=== PATIENT | male | born 1985 | race African-American/Black ===

== ENCOUNTER 2016-10-06 22:12 | Emergency (ER) | payer SELFPAY ==
[~2016-10-06] VITALS: Ht 188 cm; Wt 104.0 kg
[2016-10-07 01:18] VITALS: BP 126/78
== END 2016-10-07 02:28 | disposition home or self-care (01) ==
LOC: ER 22:12
DX: A08.4 Viral intestinal infection, unspecified (principal); J45.909 Unspecified asthma, uncomplicated; F17.200 Nicotine dependence, unspecified, uncomplicated; F12.10 Cannabis abuse, uncomplicated
CPT/HCPCS: 99283

== ENCOUNTER 2016-11-17 22:02 | Emergency (ER) | payer SELFPAY ==
[~2016-11-17] VITALS: Ht 185.4 cm; Wt 105.0 kg
[2016-11-18 01:43] VITALS: BP 110/65
== END 2016-11-18 03:49 | disposition home or self-care (01) ==
LOC: ER 22:02
DX: R10.9 Unspecified abdominal pain (principal); J45.909 Unspecified asthma, uncomplicated; F17.200 Nicotine dependence, unspecified, uncomplicated
CPT/HCPCS: 99281